=== PATIENT | male | born 1945 | race Caucasian/White ===

== ENCOUNTER 2017-05-04 05:35 | Day surgery (SDC) | payer MEDICARE, BC ==
[~2017-05-04] VITALS: Ht 185.4 cm; Wt 127.2 kg
[~2017-05-04 05:35] MED LIST: ASPI-496 PO; ATOR20TA9 PO; CHOL20002 PO; LEVO75TA5 PO; PANT40TA5 PO; TAMS-11 PO
[2017-05-04] MEDS ORDERED: LACTATED RINGERS 1,000 ML IV SCH (06:05)
[2017-05-04 06:30] VITALS: BP 168/98
[2017-05-04] MEDS ORDERED: LIDOCAINE 1%, 20ML ONE (06:59)
[2017-05-04] MEDS ORDERED: EPINEPHRINE TOPICAL SOLN 1 MG/ML, 30ML ONE (06:59)
[2017-05-04] MEDS ORDERED: BACITRACIN OINT 500U/GM, 15 GM ONE (06:59)
[2017-05-04] MEDS ORDERED: FLUORESCEIN OPHTHALMIC 1 MG STRIP ONE (06:59)
[2017-05-04] MEDS ORDERED: EPINEPHRINE 1 MG/ML, 1ML ONE (06:59)
[2017-05-04] MEDS ORDERED: OXYMETAZOLINE NASAL SPRAY 0.05%, 15ML ONE (06:59)
[2017-05-04] MEDS ORDERED: FENTANYL PF 250 MCG/5ML ONE (07:21)
[2017-05-04] MEDS ORDERED: MIDAZOLAM 1 MG/ML, 2ML ONE (07:21)
[2017-05-04] MEDS ORDERED: LIDOCAINE 4%, 4 ML SYR/CANN TP ONE (07:24)
[2017-05-04] MEDS ORDERED: NEOSTIGMINE 1 MG/ML, 10ML ONE (07:25)
[2017-05-04] MEDS ORDERED: CEFAZOLIN 1,000 MG ONE (07:25)
[2017-05-04] MEDS ORDERED: DEXAMETHASONE 4 MG/ML, 1ML ONE (07:25)
[2017-05-04] MEDS ORDERED: ROCURONIUM 10 MG/ML,10ML ONE (07:25)
[2017-05-04] MEDS ORDERED: GLYCOPYRROLATE 0.2MG/1ML, 5ML ONE (07:25)
[2017-05-04] MEDS ORDERED: SUCCINYLCHOLINE 20 MG/ML, 10ML ONE (07:25)
[2017-05-04] MEDS ORDERED: ONDANSETRON 2MG/ML, 2ML ONE (07:25)
[2017-05-04] MEDS ORDERED: PROPOFOL 10 MG/ML, 20ML ONE (07:25)
[2017-05-04] MEDS ORDERED: EPHEDRINE 50 MG/ML, 1ML ONE (07:50)
[2017-05-04] MEDS ORDERED: OXYcodone 5 MG/5 ML ORAL.SOL UDC PO PRN (08:00)
[2017-05-04] MEDS ORDERED: morphine SULFATE 10 MG/ML, 1ML IV PRN (08:00)
[2017-05-04] MEDS ORDERED: ONDANSETRON 2MG/ML, 2ML IVPush PRN (08:00)
[2017-05-04] MEDS ORDERED: LABETALOL 5MG/ML, 20ML IV PRN (08:00)
[2017-05-04] MEDS ORDERED: PROMETHAZINE 25 MG/ML, 1ML IV PRN (08:00)
[2017-05-04] MEDS ORDERED: ACETAMINOPHEN 325 MG TABLET PO PRN (08:00)
[2017-05-04] MEDS ORDERED: HYDROcodone/APAP 7.5-325MG/15ML UDC PO PRN (08:00)
[2017-05-04] MEDS ORDERED: FENTANYL PF 100 MCG/2ML IV PRN (08:00)
[2017-05-04] MEDS ORDERED: ACETAMINOPHEN 650 MG/20.3 ML UDC ONE (09:27)
[2017-05-04] MEDS ORDERED: OXYcodone 5 MG/5 ML ORAL.SOL UDC ONE (09:28)
[2017-05-04] MEDS ORDERED: LABETALOL 5MG/ML, 20ML ONE (09:28)
== END 2017-05-04 12:00 ==
LOC: OUT 05:35
PROVIDERS: ATTEND Otolaryngology
DX: J32.9 Chronic sinusitis, unspecified (principal); E78.00 Pure hypercholesterolemia, unspecified; K21.9 Gastro-esophageal reflux disease without esophagitis; N40.0 Benign prostatic hyperplasia without lower urinary tract symptoms
CPT/HCPCS: 31255; 31256; 31288; 61782; 87070; 87075; 87102; 87205; 88304; J0171; J0330; J0690; J1100; J2250; J2405; J2704; J2710; J3010; J3490; J7120; 87077; 87186; 88311